=== PATIENT | male | born 1965 | race Caucasian/White ===

== ENCOUNTER → 2020-02-22 | Outpatient (CLI) | payer MEDICARE | END | disposition home or self-care (01) | LOC: STAR 12:31 | PROVIDERS: ATTEND Anesthesiology | DX: Z20.828 Contact with and (suspected) exposure to other viral communicable diseases (principal) | CPT/HCPCS: 87635 ==

== ENCOUNTER 2020-02-28 15:05 | Day surgery (SDC) | payer MEDICARE ==
[~2020-02-28] VITALS: Ht 177.8 cm; Wt 88.7 kg
[2020-02-28 15:40] VITALS: BP 179/103
[2020-02-28] MEDS ORDERED: trazadone PO (15:47)
[2020-02-28] MEDS ORDERED: depakote PO (15:49)
[2020-02-28] MEDS ORDERED: LACTATED RINGERS 1,000 ML IV SCH (16:00)
[2020-02-28] MEDS ORDERED: CHLORHEXIDINE 15 ML UDC MM ONE (16:00)
[2020-02-28] MEDS ORDERED: MIDAZOLAM 1 MG/ML, 2ML ONE (16:18)
[2020-02-28] MEDS ORDERED: FENTANYL PF 100 MCG/2ML ONE (16:18)
[2020-02-28] MEDS ORDERED: DEXAMETHASONE 4 MG/ML, 1ML ONE (16:21)
[2020-02-28] MEDS ORDERED: SUCCINYLCHOLINE 20 MG/ML, 10ML ONE (16:21)
[2020-02-28] MEDS ORDERED: CEFAZOLIN 1,000 MG ONE (16:21)
[2020-02-28] MEDS ORDERED: PROPOFOL 10 MG/ML, 20ML ONE (16:21)
[2020-02-28] MEDS ORDERED: ONDANSETRON 2MG/ML, 2ML ONE (16:21)
[2020-02-28] MEDS ORDERED: LIDOCAINE/PF 1%, 30ML ONE (16:28)
[2020-02-28] MEDS ORDERED: morphine SULFATE/PF 1 MG/ML, 10ML ONE (16:32)
[2020-02-28] MEDS ORDERED: BUPIVACAINE/PF-EPI 0.25% 1:200K INFIL ONE (16:37)
[2020-02-28] MEDS ORDERED: hydrALAzine 20 MG/ML, 1ML IV PRN (17:00)
[2020-02-28] MEDS ORDERED: MEPERIDINE/PF 25MG/0.5ML IVPush PRN (17:00)
[2020-02-28] MEDS ORDERED: ONDANSETRON 2MG/ML, 2ML IVPush PRN (17:00)
[2020-02-28] MEDS ORDERED: FENTANYL PF 100 MCG/2ML IV PRN (17:00)
[2020-02-28] MEDS ORDERED: PROMETHAZINE 25 MG/ML, 1ML IV PRN (17:00)
[2020-02-28] MEDS ORDERED: METOCLOPRAMIDE 5 MG/ML, 2ML IV PRN (17:00)
[2020-02-28] MEDS ORDERED: ALBUTEROL SULFATE 2.5 MG/3 ML NPPB PRN (17:00)
[2020-02-28] MEDS ORDERED: HYDROmorphone 1 MG/ML, 1ML INJ IV PRN (17:00)
[2020-02-28] MEDS ORDERED: LABETALOL 5MG/ML, 20ML IV PRN (17:00)
[2020-02-28] MEDS ORDERED: DIAZEPAM 5 MG/ML, 2ML IV PRN ×2 (17:00)
[2020-02-28] MEDS ORDERED: KETOROLAC 30 MG/1 ML IV PRN (17:00)
[2020-02-28] MEDS ORDERED: OXYcodone 5 MG/5 ML ORAL.SOL UDC PO PRN (17:00)
[2020-02-28] MEDS ORDERED: KETOROLAC 30 MG/1 ML ONE (17:26)
[2020-02-28] MEDS ORDERED: hydrALAzine 20 MG/ML, 1ML ONE (17:26)
[2020-02-28] MEDS ORDERED: LABETALOL 5MG/ML, 20ML ONE (17:46)
[2020-02-28] MEDS ORDERED: OXYcodone 5 MG/5 ML ORAL.SOL UDC ONE (17:58)
== END 2020-02-28 18:40 | disposition home or self-care (01) ==
LOC: OR 15:05
PROVIDERS: ATTEND Orthopaedic Surgery
DX: S83.232A Complex tear of medial meniscus, current injury, left knee, initial encounter (principal); S83.252A Bucket-handle tear of lateral meniscus, current injury, left knee, initial encounter; M22.42 Chondromalacia patellae, left knee; M67.262 Synovial hypertrophy, not elsewhere classified, left lower leg; M19.90 Unspecified osteoarthritis, unspecified site; F10.10 Alcohol abuse, uncomplicated; Z79.891 Long term (current) use of opiate analgesic; Z79.899 Other long term (current) drug therapy; X50.1XXA Overexertion from prolonged static or awkward postures, initial encounter; W18.39XA Other fall on same level, initial encounter; Y93.89 Activity, other specified; Y92.89 Other specified places as the place of occurrence of the external cause; Y99.8 Other external cause status
CPT/HCPCS: 29880; 93005; J0330; J0360; J0690; J1100; J1885; J2250; J2274; J2405; J2704; J3010; J7120